=== PATIENT | male | born 1945 | race Caucasian/White ===

== ENCOUNTER 2017-06-01 17:18 | Inpatient (IN) | payer MEDICARE, OTHER ==
[~2017-06-01] VITALS: Ht 174 cm; Wt 98.8 kg
[2017-06-01] MEDS ORDERED: magnesium 4gm in 100ml NS 100 ML IV ONE (17:25)
[2017-06-01] MEDS ORDERED: midazolam 100mg in NS 100ml 100 ML IV ONE (17:33)
[2017-06-01 17:36] LABS: ABG BASE EXCESS -7.7 mmol/L (-2.0-3.0); ABG HCO3 19.1 mmol/L (22.0-26.0); ABG OXYGEN SATURATION 98.6 % (95-98); ABG PH (T) 7.265 (7.350-7.450); ABG PO2 (T) 169.2 mmHg (83-108); ALLEN'S TEST Positive; FCOHb 0.4 % (0.5-1.5); FMetHb 0.4 % (0.3-1.12); FO2Hb 97.8 % (94-100); MINUTE VOLUME 6 L/min; PEEP 5 cm H2O; RESPIRATORY RATE 16 b/min; RESPIRATORY RATE (OBSERVED) 16 b/min; TIDAL VOLUME 400 mL; TOTAL HEMOGLOBIN 17.4 G/dl (14.0-18.0)
[2017-06-01] MEDS: midazolam 100mg in NS 100ml 100 ML IV SCH ×4 (17:39→20:02)
[2017-06-01 17:53] LABS: BASOPHILS # (AUTO) 0.1 X10'3 (0-0.2); BASOPHILS % (AUTO) 0.3 % (0-1); EOSINOPHILS # (AUTO) 0.4 X10'3 (0-0.9); HEMATOCRIT 50.9 % (42.0-52.0); LYMPHOCYTES # (AUTO) 2.9 X10'3 (1.1-4.8); LYMPHOCYTES % (AUTO) 15.5 % (21-51); MEAN CORPUSCULAR HEMOGLOBIN 28.9 PG (27.0-31.0); MEAN CORPUSCULAR HGB CONC 33.5 % (33.0-36.5); MEAN CORPUSCULAR VOLUME 86.5 FL (78-98); MEAN PLATELET VOLUME 7.8 FL (7.4-10.4); MONOCYTES # (AUTO) 0.6 X10'3 (0-0.9); MONOCYTES % (AUTO) 3.5 % (2-12); NEUTROPHILS # (AUTO) 14.6 X10'3 (1.8-7.7); NEUTROPHILS % (AUTO) 78.7 % (42-75); PLATELET COUNT 244 X10'3 (140-440); RED BLOOD COUNT 5.89 X10'6 (4.70-6.10); RED CELL DISTRIBUTION WIDTH 14.2 % (11.5-14.5); WHITE BLOOD COUNT 18.5 X10'3 (4.5-11.0)
[2017-06-01] MEDS: amiodarone/D5 450MG/250ML BAG 250 ML IV SCH (17:56)
[2017-06-01 18:00] LABS: CLARITY,URINE CLOUDY (Clear); COLOR,URINE YELLOW (Yellow); GLUCOSE, URINE 100 mg/dl (Neg); KETONES,URINE NEGATIVE (Neg); LEUKOCYTE ESTERASE ,URINE NEGATIVE (Neg); NITRITES, URINE NEGATIVE (Neg); OCCULT BLOOD,URINE MODERATE (Neg); PH,URINE 5.5 (4.8-8.0); PROTEIN,URINE 100 mg/dl (Neg); UROBILINOGEN,URINE 0.2 E.U/dL (0.2-1.0)
[2017-06-01 18:04] LABS: INR 1.1 INR; PARTIAL THROMBOPLASTIN TIME 24 SECONDS (22-32)
[2017-06-01 18:07] LABS: UA COLLECTION TYPE STRAIGHT CATH
[2017-06-01 18:08] LABS: ALANINE AMINOTRANSFERASE 116 U/L (12-78); ALBUMIN/GLOBULIN RATIO 1.1 (1.1-1.5); ALKALINE PHOSPHATASE 39 IU/L (46-116); ANION GAP 16 (8-16); ASPARTATE AMINO TRANSFERASE 86 U/L (10-37); BILIRUBIN,TOTAL 1.4 MG/DL (0.1-1.0); BLOOD UREA NITROGEN 21 MG/DL (7-18); BUN/CREATININE RATIO 14.9 (5.4-32.0); CHLORIDE 104 MMOL/L (99-107); CREATININE 1.41 MG/DL (0.60-1.10); GLUCOSE 228 MG/DL (70-104); MAGNESIUM 2.3 MG/DL (1.5-2.4); PHOSPHORUS 4.3 MG/DL (2.3-4.5); POTASSIUM 3.6 MMOL/L (3.5-5.1); SODIUM 140 MMOL/L (135-145); TOTAL CARBON DIOXIDE 20.5 MMOL/L (24-32); TOTAL PROTEIN 7.8 G/DL (6.4-8.2); eGFR 49 ML/MIN
[2017-06-01 18:10] LABS: AMORPHOUS URATES 1+; BACTERIA,URINE FEW /HPF (Neg); MUCUS STRANDS MODERATE /LPF (Neg); RBC,URINE 0-2 /HPF (0-2); SQUAMOUS EPITHELIAL CELL,UR FEW /LPF (FEW); WBC,URINE 0-4 /HPF (0-4)
[2017-06-01 18:11] LABS: SPERM FEW /HPF (NEGATIVE)
[2017-06-01] MEDS ORDERED: piperacillin-tazo 2.25gm/50ml 50 ML IV STA (18:58)
[2017-06-01] MEDS ORDERED: normal saline 1000ml 1,000 ML IV ONE (19:00)
[2017-06-01] MEDS: FENTANYL-0.9 % NACL/PF 100 ML IV PRN (20:01)
[2017-06-01] MEDS ORDERED: normal saline 1000ml 1,000 ML IVB ONE ×2 (20:34)
[2017-06-01] MEDS ORDERED: ondansetron/PF 4mg/2ml inj IV PRN (20:45)
[2017-06-01] MEDS ORDERED: acetaminophen 650mg rectal suppository RC PRN (20:45)
[2017-06-01] MEDS ORDERED: magnesium 4gm in 100ml NS 100 ML IV PRN (20:45)
[2017-06-01] MEDS ORDERED: potassium Cl 40MEQ/NS 500ml 500 ML IV PRN ×2 (20:45)
[2017-06-01] MEDS ORDERED: morphine 4 MG/ML inj SYRINge IV PRN ×2 (20:45)
[2017-06-01 22:00] VITALS: BP 95/66
[2017-06-01 23:00] VITALS: BP 91/66
[2017-06-02] VITALS (24 sets, daily range): BP systolic 81–142; BP diastolic 62–93
[2017-06-02] MEDS ORDERED: CISatracurium 10mg/ml inj.***infusion only IV ONE (00:03)
[2017-06-02] MEDS: DOPamine 400mg/D5W 250ml 250 ML IV SCH ×3 (00:10→22:24)
[2017-06-02 00:51] LABS: ABG BASE EXCESS -12.2 mmol/L (-2.0-3.0); ABG HCO3 14.7 mmol/L (22.0-26.0); ABG OXYGEN SATURATION 95.3 % (95-98); ABG PCO2 (T) 34.2 mmHg (35.0-48.0); ABG PO2 (T) 75.2 mmHg (83-108); ALLEN'S TEST Positive; FCOHb 0.3 % (0.5-1.5); FMetHb 0.1 % (0.3-1.12); FO2Hb 94.9 % (94-100); MINUTE VOLUME 9 L/min; PATIENT TEMPERATURE 35.1; PEEP 5 cm H2O; RESPIRATORY RATE 20 b/min; RESPIRATORY RATE (OBSERVED) 20 b/min; TIDAL VOLUME 400 mL; TOTAL HEMOGLOBIN 17.4 G/dl (14.0-18.0)
[2017-06-02 00:51] LABS: PO2 MIXED VENOUS (TEMP COR) 33.2 mmHg (35-46)
[2017-06-02] MEDS: CISatracurium besylate inj. 200 MG in normal saline 250ml IV soln 180 ML IV PRN ×2 (01:00→19:41)
[2017-06-02 01:04] LABS: INR 1.1 INR; PARTIAL THROMBOPLASTIN TIME 22 SECONDS (22-32); PROTHROMBIN TIME 11.1 SECONDS (9.0-12.0)
[2017-06-02 01:35] LABS: ALANINE AMINOTRANSFERASE 139 U/L (12-78); ALBUMIN 3.4 G/DL (3.4-5.0); ALKALINE PHOSPHATASE 37 IU/L (46-116); ANION GAP 9 (8-16); ASPARTATE AMINO TRANSFERASE 225 U/L (10-37); BILIRUBIN,TOTAL 2.1 MG/DL (0.1-1.0); BLOOD UREA NITROGEN 22 MG/DL (7-18); BUN/CREATININE RATIO 17.7 (5.4-32.0); CALCIUM 7.6 MG/DL (8.5-10.1); CHLORIDE 108 MMOL/L (99-107); CREATININE 1.24 MG/DL (0.60-1.10); GLUCOSE 197 MG/DL (70-104); PHOSPHORUS 3.8 MG/DL (2.3-4.5); SODIUM 140 MMOL/L (135-145); TOTAL CARBON DIOXIDE 23.3 MMOL/L (24-32); TOTAL PROTEIN 6.8 G/DL (6.4-8.2); eGFR 57 ML/MIN
[2017-06-02 01:36] LABS: CKMB RELATIVE INDEX 18.7 RATIO (0-2.5); CREATINE KINASE 1761 U/L (39-308)
[2017-06-02 01:45] LABS: BASOPHILS # (AUTO) 0.2 X10'3 (0-0.2); EOSINOPHILS % (AUTO) 0.1 % (0-6); HEMATOCRIT 48.8 % (42.0-52.0); HEMOGLOBIN 16.4 g/dl (14.0-17.9); LYMPHOCYTES # (AUTO) 1.4 X10'3 (1.1-4.8); LYMPHOCYTES % (AUTO) 8.4 % (21-51); MEAN CORPUSCULAR HEMOGLOBIN 28.8 PG (27.0-31.0); MEAN CORPUSCULAR HGB CONC 33.6 % (33.0-36.5); MEAN CORPUSCULAR VOLUME 85.5 FL (78-98); MEAN PLATELET VOLUME 8.1 FL (7.4-10.4); MONOCYTES # (AUTO) 0.9 X10'3 (0-0.9); MONOCYTES % (AUTO) 5.2 % (2-12); NEUTROPHILS # (AUTO) 14.6 X10'3 (1.8-7.7); NEUTROPHILS % (AUTO) 85.3 % (42-75); PLATELET COUNT 243 X10'3 (140-440); RED BLOOD COUNT 5.71 X10'6 (4.70-6.10); RED CELL DISTRIBUTION WIDTH 13.6 % (11.5-14.5); WHITE BLOOD COUNT 17.1 X10'3 (4.5-11.0)
[2017-06-02] MEDS ORDERED: IBUP-1984 PO (01:54)
[2017-06-02] MEDS ORDERED: FAMO-129 PO (01:54)
[2017-06-02] MEDS: amiodarone/D5 450MG/250ML BAG 250 ML IV SCH (02:07)
[2017-06-02] MEDS ORDERED: dextrose 50%-water 50ml dispensing syringe IV PRN ×2 (02:15)
[2017-06-02] MEDS ORDERED: glucagon, human recombinant 1mg kit SUBCUT PRN (02:15)
[2017-06-02] MEDS ORDERED: insulin Lispro (HumaLOG) vial - multi-dose SQ SCH (02:15)
[2017-06-02] MEDS ORDERED: normal saline 1000ml 1,000 ML IV SCH (02:15)
[2017-06-02] MEDS ORDERED: dextrose ORAL solution 15 GM/59 ML bottle PO PRN ×2 (02:15)
[2017-06-02] MEDS ORDERED: insulin Lispro (HumaLOG) vial - multi-dose SQ ONE (02:36)
[2017-06-02] MEDS: K, MAG and/or Phos replacement - Verify level? MC SCH ×2 (03:00→07:28)
[2017-06-02 03:34] LABS: HEMOGLOBIN A1C 6.1 % (4.5-6.2)
[2017-06-02] MEDS: mineral oil/petrolatum ophthal oint OP SCH ×6 (04:49→20:14)
[2017-06-02 05:41] LABS: ABG BASE EXCESS -11.3 mmol/L (-2.0-3.0); ABG HCO3 14.1 mmol/L (22.0-26.0); ABG PCO2 (T) 24.7 mmHg (35.0-48.0); ABG PH (T) 7.345 (7.350-7.450); ABG PO2 (T) 65.4 mmHg (83-108); ALLEN'S TEST Positive; FCOHb 0.3 % (0.5-1.5); FMetHb 0.2 % (0.3-1.12); FO2Hb 95.5 % (94-100); MINUTE VOLUME 9 L/min; PATIENT TEMPERATURE 31.5; PEEP 5 cm H2O; RESPIRATORY RATE 20 b/min; RESPIRATORY RATE (OBSERVED) 20 b/min; TIDAL VOLUME 400 mL; TOTAL HEMOGLOBIN 17.9 G/dl (14.0-18.0)
[2017-06-02 06:00] LABS: OXYGEN SATURATION (MIXED VEN) 54.3 % (60-80); PO2 MIXED VENOUS (TEMP COR) 21.7 mmHg (35-46)
[2017-06-02 07:11] LABS: ALBUMIN 3.4 G/DL (3.4-5.0); ANION GAP 13 (8-16); BLOOD UREA NITROGEN 19 MG/DL (7-18); BUN/CREATININE RATIO 16.2 (5.4-32.0); CALCIUM 7.8 MG/DL (8.5-10.1); CHLORIDE 107 MMOL/L (99-107); CREATININE 1.17 MG/DL (0.60-1.10); GLUCOSE 213 MG/DL (70-104); MAGNESIUM 2.7 MG/DL (1.5-2.4); POTASSIUM 4.7 MMOL/L (3.5-5.1); SODIUM 140 MMOL/L (135-145); eGFR 61 ML/MIN
[2017-06-02 07:21] LABS: CREATINE KINASE 3474 U/L (39-308)
[2017-06-02 07:23] LABS: TROPONIN I 29.83 NG/ML (0.0-0.05)
[2017-06-02] MEDS: midazolam 100mg in NS 100ml 100 ML IV SCH (07:28)
[2017-06-02 07:36] LABS: CKMB RELATIVE INDEX 15.6 RATIO (0-2.5)
[2017-06-02] MEDS: insulin regular, human inj. 100 UNITS in normal saline 100ml IV soln 100 ML IV SCH ×12 (10:08→19:18)
[2017-06-02] MEDS ORDERED: heparin 10,000 units/1 ML INJ IV ONE (10:50)
[2017-06-02] MEDS ORDERED: heparin 10,000 units/1 ML INJ IV PRN (10:50)
[2017-06-02 11:56] LABS: ABG BASE EXCESS -7.2 mmol/L (-2.0-3.0); ABG HCO3 18.4 mmol/L (22.0-26.0); ABG OXYGEN SATURATION 94.2 % (95-98); ABG PCO2 (T) 30.8 mmHg (35.0-48.0); ABG PH (T) 7.371 (7.350-7.450); ABG PO2 (T) 52.9 mmHg (83-108); ALLEN'S TEST Positive; FCOHb 0.3 % (0.5-1.5); FMetHb 0.2 % (0.3-1.12); FO2Hb 93.7 % (94-100); PATIENT TEMPERATURE 32.3; RESPIRATORY RATE 20 b/min; RESPIRATORY RATE (OBSERVED) 20 b/min; TIDAL VOLUME 400 mL; TOTAL HEMOGLOBIN 18.3 G/dl (14.0-18.0)
[2017-06-02] MEDS ORDERED: aspirin 300mg supp.rect RC ONE (12:05)
[2017-06-02 12:06] LABS: OXYGEN SATURATION (MIXED VEN) 71.4 % (60-80); PO2 MIXED VENOUS (TEMP COR) 27.6 mmHg (35-46)
[2017-06-02] MEDS: pantoprazole 40 MG vial IV SCH (12:16)
[2017-06-02] MEDS: sodium chloride 0.45% 1,000 ML IV SCH ×2 (12:17→21:01)
[2017-06-02 12:40] LABS: ALBUMIN 3.5 G/DL (3.4-5.0); ANION GAP 9 (8-16); BLOOD UREA NITROGEN 17 MG/DL (7-18); BUN/CREATININE RATIO 17.7 (5.4-32.0); CALCIUM 7.7 MG/DL (8.5-10.1); CHLORIDE 108 MMOL/L (99-107); CREATININE 0.96 MG/DL (0.60-1.10); GLUCOSE 154 MG/DL (70-104); MAGNESIUM 2.4 MG/DL (1.5-2.4); POTASSIUM 3.7 MMOL/L (3.5-5.1); SODIUM 141 MMOL/L (135-145); TOTAL CARBON DIOXIDE 23.6 MMOL/L (24-32); eGFR 77 ML/MIN
[2017-06-02 16:49] LABS: ALBUMIN 3.4 G/DL (3.4-5.0); ANION GAP 10 (8-16); BLOOD UREA NITROGEN 16 MG/DL (7-18); BUN/CREATININE RATIO 18.6 (5.4-32.0); CALCIUM 7.7 MG/DL (8.5-10.1); CHLORIDE 106 MMOL/L (99-107); CREATININE 0.86 MG/DL (0.60-1.10); GLUCOSE 178 MG/DL (70-104); MAGNESIUM 2.2 MG/DL (1.5-2.4); POTASSIUM 3.4 MMOL/L (3.5-5.1); SODIUM 140 MMOL/L (135-145); TOTAL CARBON DIOXIDE 23.8 MMOL/L (24-32); eGFR 87 ML/MIN
[2017-06-02 17:15] LABS: OXYGEN SATURATION (MIXED VEN) 77.3 % (60-80); PO2 MIXED VENOUS (TEMP COR) 32.2 mmHg (35-46)
[2017-06-02 17:16] LABS: TROPONIN I 49.51 NG/ML (0.0-0.05)
[2017-06-02 17:20] LABS: ABG BASE EXCESS -5.9 mmol/L (-2.0-3.0); ABG HCO3 19.3 mmol/L (22.0-26.0); ABG PCO2 (T) 31.6 mmHg (35.0-48.0); ABG PH (T) 7.386 (7.350-7.450); ALLEN'S TEST Positive; MINUTE VOLUME 9 L/min; PATIENT TEMPERATURE 33.1; PEEP 5 cm H2O; RESPIRATORY RATE 20 b/min; RESPIRATORY RATE (OBSERVED) 20 b/min; TIDAL VOLUME 400 mL
[2017-06-02 17:22] LABS: CKMB RELATIVE INDEX 25.3 RATIO (0-2.5); CREATINE KINASE 4655 U/L (39-308)
[2017-06-02] MEDS: vancomycin inj 1,250 MG in normal saline 250ml IV soln 250 ML IV SCH (19:34)
[2017-06-02] MEDS ORDERED: vancomycin/NS 1 GM ADD-VANTAGE 250 ML IV SCH (20:00)
[2017-06-02] MEDS ORDERED: insulin glargine (Lantus) pen - multi-dose SQ SCH (21:00)
[2017-06-02] MEDS: FENTANYL-0.9 % NACL/PF 100 ML IV PRN (22:33)
[2017-06-03] VITALS (24 sets, daily range): BP systolic 69–119; BP diastolic 47–81
[2017-06-03 00:41] LABS: BASOPHILS # (AUTO) 0.2 X10'3 (0-0.2); BASOPHILS % (AUTO) 1.6 % (0-1); EOSINOPHILS % (AUTO) 0.1 % (0-6); HEMATOCRIT 51.7 % (42.0-52.0); HEMOGLOBIN 17.4 g/dl (14.0-17.9); LYMPHOCYTES # (AUTO) 1.6 X10'3 (1.1-4.8); LYMPHOCYTES % (AUTO) 10.4 % (21-51); MEAN CORPUSCULAR HEMOGLOBIN 28.5 PG (27.0-31.0); MEAN CORPUSCULAR HGB CONC 33.6 % (33.0-36.5); MEAN PLATELET VOLUME 8.1 FL (7.4-10.4); MONOCYTES # (AUTO) 0.7 X10'3 (0-0.9); MONOCYTES % (AUTO) 4.4 % (2-12); NEUTROPHILS # (AUTO) 12.8 X10'3 (1.8-7.7); NEUTROPHILS % (AUTO) 83.5 % (42-75); PLATELET COUNT 183 X10'3 (140-440); RED BLOOD COUNT 6.08 X10'6 (4.70-6.10); RED CELL DISTRIBUTION WIDTH 13.4 % (11.5-14.5); WHITE BLOOD COUNT 15.3 X10'3 (4.5-11.0)
[2017-06-03 01:18] LABS: ALANINE AMINOTRANSFERASE 189 U/L (12-78); ALBUMIN 3.2 G/DL (3.4-5.0); ALBUMIN/GLOBULIN RATIO 0.9 (1.1-1.5); ALKALINE PHOSPHATASE 36 IU/L (46-116); ANION GAP 11 (8-16); ASPARTATE AMINO TRANSFERASE 519 U/L (10-37); BILIRUBIN,TOTAL 2.3 MG/DL (0.1-1.0); BLOOD UREA NITROGEN 13 MG/DL (7-18); BUN/CREATININE RATIO 17.6 (5.4-32.0); CALCIUM 7.8 MG/DL (8.5-10.1); CHLORIDE 107 MMOL/L (99-107); CREATININE 0.74 MG/DL (0.60-1.10); GLUCOSE 108 MG/DL (70-104); PHOSPHORUS 2.7 MG/DL (2.3-4.5); POTASSIUM 3.3 MMOL/L (3.5-5.1); SODIUM 142 MMOL/L (135-145); TOTAL CARBON DIOXIDE 23.6 MMOL/L (24-32); TOTAL PROTEIN 6.8 G/DL (6.4-8.2); eGFR > 90 ML/MIN
[2017-06-03 01:38] LABS: INR 1.2 INR
[2017-06-03 01:44] LABS: CKMB RELATIVE INDEX 29.1 RATIO (0-2.5); CREATINE KINASE 4147 U/L (39-308)
[2017-06-03 01:46] LABS: TROPONIN I 49.15 NG/ML (0.0-0.05)
[2017-06-03] MEDS: midazolam 100mg in NS 100ml 100 ML IV SCH ×2 (02:08→13:43)
[2017-06-03] MEDS: vancomycin inj 1,250 MG in normal saline 250ml IV soln 250 ML IV SCH ×3 (02:10→19:11)
[2017-06-03 03:11] LABS: ABG BASE EXCESS -3.6 mmol/L (-2.0-3.0); ABG HCO3 20.9 mmol/L (22.0-26.0); ABG OXYGEN SATURATION 97.7 % (95-98); ABG PCO2 (T) 33.2 mmHg (35.0-48.0); ABG PH (T) 7.407 (7.350-7.450); ABG PO2 (T) 87.9 mmHg (83-108); ALLEN'S TEST Positive; FCOHb 0.3 % (0.5-1.5); FMetHb 0.4 % (0.3-1.12); MINUTE VOLUME 8 L/min; PATIENT TEMPERATURE 34.6; PEEP 5 cm H2O; RESPIRATORY RATE 20 b/min; RESPIRATORY RATE (OBSERVED) 20 b/min; TIDAL VOLUME 400 mL; TOTAL HEMOGLOBIN 18.6 G/dl (14.0-18.0)
[2017-06-03] MEDS: mineral oil/petrolatum ophthal oint OP SCH ×6 (04:03→20:00)
[2017-06-03] MEDS: DOPamine 400mg/D5W 250ml 250 ML IV SCH (06:02)
[2017-06-03] MEDS: K, MAG and/or Phos replacement - Verify level? MC SCH (08:00)
[2017-06-03] MEDS: pantoprazole 40 MG vial IV SCH (08:13)
[2017-06-03 09:55] LABS: ALBUMIN 3.1 G/DL (3.4-5.0); ANION GAP 12 (8-16); BLOOD UREA NITROGEN 13 MG/DL (7-18); BUN/CREATININE RATIO 13.4 (5.4-32.0); CALCIUM 7.6 MG/DL (8.5-10.1); CHLORIDE 106 MMOL/L (99-107); CREATININE 0.97 MG/DL (0.60-1.10); GLUCOSE 106 MG/DL (70-104); MAGNESIUM 1.9 MG/DL (1.5-2.4); POTASSIUM 3.7 MMOL/L (3.5-5.1); SODIUM 141 MMOL/L (135-145); TOTAL CARBON DIOXIDE 23.5 MMOL/L (24-32); eGFR 76 ML/MIN
[2017-06-03 10:23] LABS: TROPONIN I 32.14 NG/ML (0.0-0.05)
[2017-06-03 10:24] LABS: CKMB RELATIVE INDEX 22.2 RATIO (0-2.5); CREATINE KINASE 2563 U/L (39-308)
[2017-06-03] MEDS: sodium chloride 0.45% 1,000 ML IV SCH ×2 (12:45→16:50)
[2017-06-03] MEDS: amiodarone 200mg tablet NG SCH (12:45)
[2017-06-03] MEDS: dexmedetomidin/NS 400mcg/100ml 100 ML IV SCH (13:38)
[2017-06-03] MEDS: FENTANYL-0.9 % NACL/PF 100 ML IV PRN (16:07)
[2017-06-03] MEDS ORDERED: amiodarone/D5 360MG/200ML BAG 250 ML IV SCH (16:11)
[2017-06-03] MEDS ORDERED: VANCOMYCIN LEVEL IV ONE (17:30)
[2017-06-03 18:12] LABS: CKMB RELATIVE INDEX 13.2 RATIO (0-2.5)
[2017-06-03 18:14] LABS: TROPONIN I 34.4 NG/ML (0.0-0.05)
[2017-06-03] MEDS: lactobacillus rhamnosus 10,000 MMU CELLS/CAPSULE PO SCH (20:00)
[2017-06-04] VITALS (20 sets, daily range): BP systolic 77–122; BP diastolic 48–73
[2017-06-04] MEDS: sodium chloride 0.45% 1,000 ML IV SCH ×2 (00:13→10:15)
[2017-06-04 01:33] LABS: BASOPHILS % (AUTO) 0.3 % (0-1); EOSINOPHILS % (AUTO) 0 % (0-6); HEMATOCRIT 43.8 % (42.0-52.0); HEMOGLOBIN 14.8 g/dl (14.0-17.9); LYMPHOCYTES # (AUTO) 1.5 X10'3 (1.1-4.8); LYMPHOCYTES % (AUTO) 11.7 % (21-51); MEAN CORPUSCULAR HEMOGLOBIN 28.7 PG (27.0-31.0); MEAN CORPUSCULAR HGB CONC 33.8 % (33.0-36.5); MEAN CORPUSCULAR VOLUME 84.9 FL (78-98); MONOCYTES % (AUTO) 7.7 % (2-12); NEUTROPHILS # (AUTO) 10.2 X10'3 (1.8-7.7); NEUTROPHILS % (AUTO) 80.3 % (42-75); PLATELET COUNT 176 X10'3 (140-440); RED BLOOD COUNT 5.16 X10'6 (4.70-6.10); RED CELL DISTRIBUTION WIDTH 13.7 % (11.5-14.5); WHITE BLOOD COUNT 12.7 X10'3 (4.5-11.0)
[2017-06-04 01:45] LABS: INR 1.3 INR; PROTHROMBIN TIME 13.2 SECONDS (9.0-12.0)
[2017-06-04 01:51] LABS: ALANINE AMINOTRANSFERASE 132 U/L (12-78); ALBUMIN 2.5 G/DL (3.4-5.0); ALBUMIN/GLOBULIN RATIO 0.7 (1.1-1.5); ALKALINE PHOSPHATASE 30 IU/L (46-116); ANION GAP 9 (8-16); ASPARTATE AMINO TRANSFERASE 248 U/L (10-37); BILIRUBIN,TOTAL 1.8 MG/DL (0.1-1.0); BLOOD UREA NITROGEN 23 MG/DL (7-18); BUN/CREATININE RATIO 14.6 (5.4-32.0); CALCIUM 7.4 MG/DL (8.5-10.1); CHLORIDE 106 MMOL/L (99-107); CREATININE 1.57 MG/DL (0.60-1.10); GLUCOSE 118 MG/DL (70-104); MAGNESIUM 1.8 MG/DL (1.5-2.4); PHOSPHORUS 2.5 MG/DL (2.3-4.5); POTASSIUM 3.8 MMOL/L (3.5-5.1); SODIUM 140 MMOL/L (135-145); TOTAL CARBON DIOXIDE 25.3 MMOL/L (24-32); TOTAL PROTEIN 5.9 G/DL (6.4-8.2); eGFR 44 ML/MIN
[2017-06-04 02:51] LABS: ABG BASE EXCESS -1.9 mmol/L (-2.0-3.0); ABG HCO3 21.9 mmol/L (22.0-26.0); ABG OXYGEN SATURATION 94.4 % (95-98); ABG PCO2 (T) 35.8 mmHg (35.0-48.0); ABG PH (T) 7.407 (7.350-7.450); ABG PO2 (T) 71.9 mmHg (83-108); ALLEN'S TEST Positive; FCOHb 0.1 % (0.5-1.5); FMetHb 0.2 % (0.3-1.12); FO2Hb 94.1 % (94-100); MINUTE VOLUME 8 L/min; PATIENT TEMPERATURE 37.6; PEEP 5 cm H2O; RESPIRATORY RATE 20 b/min; RESPIRATORY RATE (OBSERVED) 20 b/min; TIDAL VOLUME 400 mL; TOTAL HEMOGLOBIN 15.6 G/dl (14.0-18.0)
[2017-06-04] MEDS: vancomycin inj 1,250 MG in normal saline 250ml IV soln 250 ML IV SCH ×2 (03:35→10:19)
[2017-06-04] MEDS: mineral oil/petrolatum ophthal oint OP SCH ×5 (04:00→16:00)
[2017-06-04] MEDS: DOPamine 400mg/D5W 250ml 250 ML IV SCH (06:41)
[2017-06-04] MEDS: K, MAG and/or Phos replacement - Verify level? MC SCH (08:00)
[2017-06-04] MEDS: pantoprazole 40 MG vial IV SCH (09:43)
[2017-06-04] MEDS: lactobacillus rhamnosus 10,000 MMU CELLS/CAPSULE PO SCH (09:43)
[2017-06-04] MEDS: amiodarone 200mg tablet NG SCH (09:43)
[2017-06-04] MEDS: dexmedetomidin/NS 400mcg/100ml 100 ML IV SCH (10:49)
[2017-06-04] MEDS ORDERED: midazolam 2 mg/2 ml injection ONE (12:23)
[2017-06-04] MEDS ORDERED: fentaNYL/PF 50MCG/1 ML 2ML syringe ONE (12:23)
[2017-06-04] MEDS ORDERED: iohexol 350MG/ML 100ml bottle IV ONE (12:24)
[2017-06-04] MEDS ORDERED: LIDOcaine 1%/PF (10mg/ml) 5ml vial ONE (12:24)
[2017-06-04] MEDS: midazolam 100mg in NS 100ml 100 ML IV SCH (12:27)
[2017-06-04] MEDS: LORazepam 2 mg/ml vial IV PRN ×6 (14:46→23:54)
[2017-06-04] MEDS ORDERED: normal saline 1000ml 1,000 ML IV SCH (17:05)
[2017-06-04] MEDS: morphine 10mg/ml inj. IV PRN ×2 (17:09→20:50)
[2017-06-04] MEDS ORDERED: morphine 10mg/ml inj. IV ONE (22:50)
[2017-06-04] MEDS ORDERED: HYDROmorphone/NS 1 mg/ml CADD 50 ML IV SCH (23:10)
[2017-06-05] VITALS: BP 97/57
== END 2017-06-05 00:16 | disposition expired ==
LOC: ER 17:19 → ED HOLD 20:44 → ICU 2S 21:55
PROVIDERS: ADMIT Internal Medicine Critical Care Medicine; ATTEND Internal Medicine Interventional Cardiology
PROC: 5A1945Z Respiratory Ventilation, 24-96 Consecutive Hours (ICD-10-PCS; 2017-06-01)
PROC: 02HV33Z Insertion of Infusion Device into Superior Vena Cava, Percutaneous Approach (ICD-10-PCS; 2017-06-01)
PROC: B548ZZA Ultrasonography of Superior Vena Cava, Guidance (ICD-10-PCS; 2017-06-01)
PROC: 4A023N7 Measurement of Cardiac Sampling and Pressure, Left Heart, Percutaneous Approach (ICD-10-PCS; principal; 2017-06-04)
PROC: B2111ZZ Fluoroscopy of Multiple Coronary Arteries using Low Osmolar Contrast (ICD-10-PCS; 2017-06-04)
PROC: B2151ZZ Fluoroscopy of Left Heart using Low Osmolar Contrast (ICD-10-PCS; 2017-06-04)
PROC: B41F1ZZ Fluoroscopy of Right Lower Extremity Arteries using Low Osmolar Contrast (ICD-10-PCS; 2017-06-04)
DX: I21.4 Non-ST elevation (NSTEMI) myocardial infarction (principal); I50.21 Acute systolic (congestive) heart failure; I46.2 Cardiac arrest due to underlying cardiac condition; I44.2 Atrioventricular block, complete; N17.9 Acute kidney failure, unspecified; E87.2 Acidosis; I42.9 Cardiomyopathy, unspecified; I49.01 Ventricular fibrillation; D72.829 Elevated white blood cell count, unspecified; I45.10 Unspecified right bundle-branch block; F17.220 Nicotine dependence, chewing tobacco, uncomplicated; R74.0 Nonspecific elevation of levels of transaminase and lactic acid dehydrogenase [LDH]; Z51.5 Encounter for palliative care; Z66 Do not resuscitate; Z88.8 Allergy status to other drugs, medicaments and biological substances; Z79.899 Other long term (current) drug therapy
CPT/HCPCS: 36415; 36556; 36600; 70450; 71045; 80048; 80053; 80202; 81001; 82550; 82553; 82803; 82810; 82948; 83036; 83605; 83735; 84100; 84145; 84484; 85018; 85025; 85347; 85610; 85730; 86885; 86900; 86901; 87040; 87070; 87077; 87186; 93005; 93308; 93458; 94002; 94003; 94760; 96365; 96366; 96368; 99152; 99291; 99292; A4620; A6213; A6257; C1751; C1758; C1760; C1769; C9113; J1170; J1265; J1644; J1815; J2001; J2060; J2250; J2270; J2543; J3010; J3370; J3475; J3490; J7030; Q9967